=== PATIENT | male | born 1950 | race Caucasian/White ===

== ENCOUNTER 2020-02-29 13:53 | Emergency (ER) | payer MEDICARE, SELFPAY ==
--- NOTE | 2020-02-29 13:59 | XR_ITS ---
PROCEDURE: XR ANKLE RT MIN 3V CLINICAL INDICATION: fall from roof lateral pain COMPARISON: No exams were available for comparison FINDINGS: There is prominent soft tissue swelling at the lateral malleolar region. A faint curvilinear density is present lateral to the lateral malleolus and could be due to an avulsion injury. There is an old avulsion fracture at the tip of the medial malleolus. In the distal shaft of the tibia laterally there is a well-circumscribed sclerotic region measuring approximately 16 mm. Comminuted impacted calcaneal fracture is noted. Fracture line may extend into the subtalar region. IMPRESSION: 1. Comminuted impacted calcaneal fracture. 2. Possible avulsion fracture at the lateral malleolar region. Dictated by: Tunde Up MD 02/29/2020 15:09 Tunde Up MD in [facility] 02/29/2020 15:09
--- NOTE | 2020-02-29 13:59 | CT_ITS ---
PROCEDURE: CT CERVICAL SPINE WO CON CLINICAL INDICATION: fall from roof Neck injury with pain, contusion/abrasion or hematoma, cervical sprain/strain the COMPARISON: No exams were available for comparison TECHNIQUE: Axial images obtained with sagittal and coronal reformats. All CT scans at the facility use one or more dose reduction, viz: automated exposure control, ma/kV adjustment per patient size (including targeted exams where dose is matched to indication, i.e. head), or iterative reconstruction technique. Axial spiral CT scanning performed of the cervical spine beginning at the base of the skull and continuing to the upper T-spine. 3-D multiplanar reconstruction with 3-D manipulation of volumetric data set in image rendering was completed by the radiologist and/or technologist with the supervision of the radiologist on independent workstation. FINDINGS: Normal alignment. No acute fracture or dislocation. There is mild multilevel cervical spondylosis. C3-C4: Foraminal narrowing on the right from facet and uncovertebral hypertrophy. C4-C5: Right-sided foraminal narrowing from facet and uncovertebral hypertrophy. C5-C6: Mild degenerative disc disease. C6-C7: Unremarkable. Lung apices are clear. Scattered small nodes are present in the neck. IMPRESSION: Cervical spondylosis, no acute fracture Dictated by: Tunde Up MD 02/29/2020 14:51 Tunde Up MD in [facility] 02/29/2020 14:51
--- NOTE | 2020-02-29 13:59 | CT_ITS ---
PROCEDURE: CT HEAD/BRAIN WO CON CLINICAL INDICATION: fall from roof Head injury with headache/pain, contusion, abrasion or hematoma COMPARISON: No exams were available for comparison TECHNIQUE: Axial images obtained. All CT scans at the facility use one or more dose reduction, viz: automated exposure control, ma/kV adjustment per patient size (including targeted exams where dose is matched to indication, i.e. head), or iterative reconstruction technique. FINDINGS: No midline shift, mass effect, intracranial hemorrhage, hydrocephalus, or extra-axial fluid collection is evident. The calvarium has an unremarkable appearance. No mastoid effusion. No sinus air-fluid level. IMPRESSION: No acute intracranial finding Dictated by: Tunde Up MD 02/29/2020 14:46 Tunde Up MD in [facility] 02/29/2020 14:47
--- NOTE | 2020-02-29 13:59 | CT_ITS ---
PROCEDURE: CT LUMBAR SPINE WO CON CLINICAL HISTORY: fall from roof Posttraumatic pain COMPARISON: No exams were available for comparison TECHNIQUE: Axial images obtained with sagittal and coronal reformats. All CT scans at the facility use one or more dose reduction, viz: automated exposure control, ma/kV adjustment per patient size (including targeted exams where dose is matched to indication, i.e. head), or iterative reconstruction technique. FINDINGS: Normal alignment. There is degenerative disc disease at T11-T12 and T12-L1. There is minimal buckling of the anterior cortex at L1 with very slight loss of height anteriorly suggesting a minor acute wedge compression fracture. There is a small osteophyte at the T12-L1 level anteriorly as well. No retropulsion or posterior element involvement. The compression is slightly greater along the left aspect of the vertebral body anteriorly as seen on the coronal images. There is a sclerotic focus in the pedicle on the right at L1 and may be due to a bone island measuring approximately 10 mm. L1-L2: Unremarkable. L2-L3: Mild bulging disc. L3-L4: Mild bulging disc. L4-5: Mild bulging disc. L5-S1: Bulging disc. There is a sclerotic focus at 15 mm in the ilium on the right medially with an additional sclerotic focus of the ilium posteriorly at 7 mm. A sclerotic focus is present in the left aspect of the S1 at 10 mm. Incidental note is made nonobstructing bilateral renal calculi. There is a 13 mm hypodensity in the posterior aspect of the left kidney. There is a 7 mm stone in the mid polar region of the left kidney IMPRESSION: 1. Acute compression fracture of L1 with loss of height anteriorly of approximately 10 percent without obvious retropulsion. 2. Multilevel lumbar spondylosis as detailed above. 3. Multiple sclerotic foci. These could be due to bone islands or blastic metastasis. Dictated by: Tunde Up MD 02/29/2020 14:57 Tunde Up MD in [facility] 02/29/2020 14:57
--- NOTE | 2020-02-29 14:01 | HMH.EDFALL ---
ED Disposition Clinical Impression: Fall from roof Qualifiers: Encounter type: initial encounter Qualified Code(s): W13.2XXA - Fall from, out of or through roof, initial encounter Calcaneal fracture Qualifiers: Encounter type: initial encounter Calcaneus location: unspecified portion of calcaneus Fracture type: closed Fracture alignment: displaced Laterality: right Qualified Code(s): S92.001A - Unspecified fracture of right calcaneus, initial encounter for closed fracture Medial malleolar fracture Qualifiers: Encounter type: initial encounter Fracture type: closed Fracture alignment: displaced Laterality: right Qualified Code(s): S82.51XA - Displaced fracture of medial malleolus of right tibia, initial encounter for closed fracture Fracture of lumbar spine Qualifiers: Encounter type: initial encounter Lumbar vertebra fracture level: L1 Fracture type: closed Fracture morphology: wedge compression Qualified Code(s): S32.010A - Wedge compression fracture of first lumbar vertebra, initial encounter for closed fracture Disposition: Home, Self-Care Condition on Discharge: Good Instructions: DI for Calcaneus Fracture, DI for Vertebral Fracture Additional Instructions: Remain nonweightbearing on the right lower extremity. Follow-up with orthopedics as directed. You should receive a call from them later today or tomorrow. Return to the emergency department for any acute new sensory or motor changes to your extremities. Prescriptions: Hydrocodone/Acetaminophen [[place] 5-325 Tablet] 1 each PO Q4-6H PRN #9 tab PRN Reason: pain Prescription Printed Referrals: Jose Gaines MD [Primary Care Provider] - 3 days - Critical Care Critical Care Time: Yes Attestation: On , the high probability of a clinically significant, sudden or life threatening deterioration of the following system(s) required my full and direct attention, intervention and personal management. The time I documented below is in addition to time spent performing reported procedures but includes the following listed in this critical care notation. Total Critical Care Time: 45 Vital system(s) involved:: Circulatory Failure, Central Nervous System, Respiratory Failure, Shock (Hemorrhage) My critical care processes included: Assessment & monitoring of V/S, Initial and Re-exams, Data Review/Interpretation, Coordinating Care, Medication Orders and management, Documentation Medical Decision Making - Medical Records Medical records reviewed: Yes: I reviewed the patient's medical records. - Ezra Inquiry Pt receiving controlled substance: No Ezra was queried for this patient: No Vital Signs: 09/28/20 14:06 02/29/20 14:41 02/29/20 15:08 Temperature 97.7 F Temperature Source Oral Pulse Rate [Left Radial] 86 84 83 Respiratory Rate 18 Blood Pressure [Right Arm] 142/80 H 132/73 126/70 Blood Pressure Mean [Right Arm] 100 92 88 Blood Pressure Source [Right Arm] Automatic Cuff Automatic Cuff Automatic Cuff Blood Pressure Position [Right Arm] Sitting Sitting 02 Sat by Pulse Oximetry 98 93 L 90 L Oxygen Delivery Method Room Air Room Air Room Air 02/29/20 15:53 Temperature Temperature Source Pulse Rate [Left Radial] 82 Respiratory Rate Blood Pressure [Right Arm] 113/65 Blood Pressure Mean [Right Arm] 81 Blood Pressure Source [Right Arm] Automatic Cuff Blood Pressure Position [Right Arm] Sitting 02 Sat by Pulse Oximetry 93 L Oxygen Delivery Method Room Air - Lab Data Lab Results 02/29/20 13:10: Total Bilirubin 0.9, Direct Bilirubin 0.0, Conjugated Bilirubin 0.0, Indirect Bilirubin 0.9, Unconjugated Bilirubin 0.9, AST 45, ALT 30, Alkaline Phosphatase 81, Total Protein 7.7, Albumin 4.4 02/29/20 13:10: PT 10.8, INR 1.05, APTT 20.9 L 02/29/20 13:50: WBC 11.3 H, RBC 5.21, Hgb 15.6, Hct 46.2, MCV 88.7, MCH 30.0, MCHC 33.8, RDW 13.5, Plt Count 275, MPV 7.6, Neut % (Auto) 70.7, Lymph % (Auto) 23.0, [place] % (Auto) 5.2, Eos % (Auto) 0.8, Baso % (Auto) 0.3, [place]
[2020-02-29 14:06] VITALS: BP 142/80; PULSE 86; RESP 18; TEMP 36.5; O2SAT 98
--- NOTE | 2020-02-29 14:06 | XR_ITS ---
PROCEDURE: XR CHEST PORTABLE CLINICAL HISTORY: fall from roof Posttraumatic pain COMPARISON: No exams were available for comparison FINDINGS: There is in right atrial and 3 right ventricular pacemaker wires present from the left subclavian approach. Normal heart size. The lungs are clear without infiltrates, suspicious nodules, or pleural effusions. Sclerotic foci are present in the right humerus proximally IMPRESSION: No acute finding. Sclerotic foci of the proximal right humerus which could be due to bone islands or blastic metastasis Dictated by: Tunde Up MD 02/29/2020 15:05 Tunde Up MD in [facility] 02/29/2020 15:05
--- NOTE | 2020-02-29 14:06 | XR_ITS ---
PROCEDURE: XR CALCANEUS RT MIN 2V CLINICAL INDICATION: fall from roof Posttraumatic pain COMPARISON: No exams were available for comparison FINDINGS: There is a comminuted fracture involving the mid and anterior aspect of the calcaneus with flattening of Boehler's angle. No significant displacement. IMPRESSION: Comminuted calcaneal fracture with flattening of Boehler's angle Dictated by: Tunde Up MD 02/29/2020 15:07 Tunde Up MD in [facility] 02/29/2020 15:07
--- NOTE | 2020-02-29 14:06 | XR_ITS ---
PROCEDURE: XR PELVIS 1-2V CLINICAL INDICATION: fall from roof Posttraumatic pain COMPARISON: No exams were available for comparison TECHNIQUE: XR Pelvis AP View FINDINGS: No fracture or dislocation is evident. Mild osteoarthritic changes of the hips. There are multiple pelvic phleboliths. There is a sclerotic focus in the right ilium at 1.9 cm. Small sclerotic focus also involves the left sacrum medially at 9 mm. IMPRESSION: No acute fracture. There are sclerotic pelvic foci which could be due to bone islands or blastic metastasis Dictated by: Tunde Up MD 02/29/2020 15:04 Tunde Up MD in [facility] 02/29/2020 15:04
[2020-02-29 14:09] LABS: Basophils % 0.3 % (0.1-2.0); Eosinophils # 0.1 K/mm3 (0.0-0.4); Eosinophils % 0.8 % (0.1-12.0); Hematocrit 46.2 % (42.0-52.0); Hemoglobin 15.6 g/dL (14.1-18.0); Lymphocytes # 2.6 K/mm3 (0.7-4.5); Mean Corpuscular HGB Conc 33.8 g/dL (31.8-35.4); Mean Corpuscular Volume 88.7 fl (80-94); Mean Platelet Volume 7.6 fl (7.4-10.4); Monocytes # 0.6 K/mm3 (0.1-1.0); Monocytes % 5.2 % (1.7-9.3); Neutrophils % 70.7 % (37.0-80.0); Platelet Count 275 K/mm3 (142-424); Red Blood Count 5.21 M/mm3 (4.60-6.20); Red Cell Distribution Width 13.5 % (11.5-17.5); White Blood Count 11.3 K/mm3 (4.8-10.8)
[2020-02-29 14:16] LABS: Chloride 105 mmol/L (98-107); Sodium 139 mmol/L (136-145)
[2020-02-29 14:18] LABS: Alanine Aminotransferase 30 U/L (12-78); Aspartate Amino Transferase 45 U/L (17-59); Bilirubin,Indirect 0.9 mg/dL (0.0-0.9); Bilirubin,Total 0.9 mg/dl (0.2-1.3); Bilirubin,Unconjugated 0.9 mg/dL (0.0-1.1)
[2020-02-29 14:19] LABS: Albumin Level 4.4 g/dl (3.5-5.0); Alkaline Phosphatase 81 U/L (38-126); Total Protein,Serum 7.7 g/dl (6.3-8.2)
[2020-02-29 14:19] LABS: Blood Urea Nitrogen 14 mg/dl (9-20); Carbon Dioxide 24 mmol/L (22.0-30.0); Estimated Glomerular Filt Rate 67 ml/min (>60); GFR (African American) 81 ML/MIN (>60)
[2020-02-29 14:20] LABS: Calcium 9.2 mg/dl (8.4-10.2); Glucose 124 mg/dl (74-100)
--- NOTE | 2020-02-29 14:21 | PC.NURSE ---
[facility] were here at the time of trauma alert being paged. Standing by at this time.
--- NOTE | 2020-02-29 14:22 | PC.NURSE ---
pt returned from rad.
--- NOTE | 2020-02-29 14:24 | PC.NURSE ---
Portable chest xray and AP pelvis being done at this time
[2020-02-29 14:34] LABS: Activated Partial Thrombo Time 20.9 seconds (23.6-34.0); INR 1.05 (0.9-1.1); Prothrombin Time 10.8 seconds (9.4-11.8)
[2020-02-29 14:37] VITALS: BMI 24.4
[2020-02-29 14:41] VITALS: BP 132/73; PULSE 84; O2SAT 93
--- NOTE | 2020-02-29 15:02 | CT_ITS ---
PROCEDURE: CT CALCANEUS RT CLINICAL HISTORY: fracture Calcaneal fracture COMPARISON: No exams were available for comparison TECHNIQUE: Axial images obtained with sagittal and coronal reformats. All CT scans at the facility use one or more dose reduction, viz: automated exposure control, ma/kV adjustment per patient size (including targeted exams where dose is matched to indication, i.e. head), or iterative reconstruction technique. FINDINGS: There is a comminuted fracture involving the calcaneus with 3 major parts of the fracture. There is a fracture extending from the superior surface of the calcaneus to the plantar surface of the calcaneus beginning just posterior to the posterior subtalar joint. This fracture is not significantly displaced but is slightly impacted with comminution of fragments at the ages of the fracture. The 2nd major fracture fragment line extends from the mid and lateral aspect of the calcaneus from the region of the peroneal tubercle obliquely to the distal surface of the calcaneus exiting just medial to the calcaneocuboid junction. The distal fracture fragment is slightly impacted. There is a butterfly fragment at this area laterally which is displaced laterally by 5 mm. The lateral portion of this fracture extends into the sinus tarsi region. There old well-circumscribed fragments at the tip of the medial malleolus consistent with old avulsion fracture or degenerative ossification. Prominent soft tissue swelling is present medially and laterally at the calcaneal region. There is loss of Boehler's angle. IMPRESSION: Comminuted calcaneal fracture as detailed above. Dictated by: Tunde Up MD 02/29/2020 15:59 Tunde Up MD in [facility] 02/29/2020 15:59
--- NOTE | 2020-02-29 15:02 | PC.NURSE ---
Dr Briscoe speaking to Dr Chua at this time.
[2020-02-29 15:08] VITALS: BP 126/70; PULSE 83; O2SAT 90
--- NOTE | 2020-02-29 15:23 | PC.NURSE ---
Pt returned to rad.
[2020-02-29 15:53] VITALS: BP 113/65; PULSE 82; O2SAT 93
[2020-02-29 17:11] VITALS: BP 113/65; PULSE 82; RESP 18; TEMP 36.5; O2SAT 93
== END 2020-02-29 17:14 | disposition home or self-care (01) ==
PROVIDERS: Emergency Provider Emergency Medicine; PCP Family Medicine
DX: S92.001A Unspecified fracture of right calcaneus, initial encounter for closed fracture (principal); S32.010A Wedge compression fracture of first lumbar vertebra, initial encounter for closed fracture; W13.2XXA Fall from, out of or through roof, initial encounter; I10 Essential (primary) hypertension
CPT/HCPCS: 29515; 36415; 70450; 71045; 72125; 72131; 72170; 73610; 73650; 73700; 80048; 80076; 85025; 85610; 85730; 86850; 99283; J2405

== ENCOUNTER 2021-01-19 09:22 | Emergency (ER) | payer MEDICARE, SELFPAY ==
[2021-01-19 09:23] VITALS: BP 124/64; PULSE 77; RESP 16; TEMP 36.5; O2SAT 99; BMI 24.4
--- NOTE | 2021-01-19 10:26 | HMH.EDUTC ---
[facility] [place] Impression: Exposure to COVID-19 virus Disposition: Home, Self-Care Condition on Discharge: Good Instructions: Preventing the Spread of Coronavirus Discharge Instructions Additional Instructions: Drink plenty of fluids. Take tylenol for pain or fever. Return if you begin to have difficulty breathing. Follow up with your regular doctor. GO TO THE ER FOR ANY WORSENING SYMPTOMS Quarantine until you know the results of your covid-19 test. If it is positive, the health department should call you and give you further instructions about your length of Quarantine and other thing. Referrals: Jose Gaines MD [Primary Care Provider] - Time of Disposition: 10:27 Medical Decision Making - Medical Records Medical records reviewed: No: I reviewed the patient's medical records. - Ezra Inquiry Pt receiving controlled substance: No Vital Signs: 01/19/21 09:23 01/19/21 10:33 Temperature 97.7 F 97.7 F Temperature Source Oral Oral Pulse Rate 77 Pulse Rate [Right] 77 Respiratory Rate 16 16 Blood Pressure 124/64 Blood Pressure [Right Arm] 124/64 Blood Pressure Mean [Right Arm] 84 02 Sat by Pulse Oximetry [address] [facility] [place] - General Stated complaint: covid test Time Seen by Provider: 01/19/21 10:27 - History of Present Illness Provider Complaint: He was exposed to covid around 3 to 4 days ago. He denies any symptoms so far. He has been vaccinated. - Related Data Previous Rx's Medication Instructions Recorded Hydrocodone/Acetaminophen [[place] 1 each PO Q4-6H PRN #9 tab 02/29/20 5-325 Tablet] Allergies Allergy/AdvReac Type Severity Reaction Status Date / Time No Known Allergies Allergy Verified 02/29/20 14:35 [facility] History - Hepatitis A Screen Attestation statement:: This patient has been screened for Hepatitis A risk factors. I have reviewed the patient's past medical history: Yes Medical History: Reports:: Hypertension ROS Obtained: Yes All systems reviewed & no additional complaints - Constitutional Constitutional: Reports system reviewed and no additional complaints, except as docu - Eyes Eyes: Reports system reviewed and no additional complaints, except as docu - ENT Ears, Nose, Mouth, and Throat: Reports system reviewed and no additional complaints, except as docu - Cardiovascular Cardiovascular: Reports system reviewed and no additional complaints, except as docu - Respiratory Respiratory: Reports system reviewed and no additional complaints, except as docu - Gastrointestinal Gastrointestingal: Reports: system reviewed and no additional complaints, except as docu Physical Exam - General General appearance: alert, in no apparent distress - Head Head exam: atraumatic, normocephalic, normal inspection - Eye Eye exam: Present: normal appearance, PERRL, EOMI - ENT ENT exam: Present: normal exam, normal oropharynx, mucous membranes moist, TM's normal bilaterally, normal external ear exam - Neck Neck exam: Present: normal inspection, full ROM, trachea midline. Absent: meningismus, lymphadenopathy - Chest Chest inspection: Present: normal inspection, symmetric chest wall rise. Absent: tenderness - Respiratory Respiratory exam: Present: normal lung sounds bilaterally. Absent: respiratory distress - Cardiovascular Cardiovascular exam: Present: regular rate, normal rhythm. Absent: JVD - Abdominal Exam Abdominal exam: Present: soft, normal bowel sounds. Absent: distention, tenderness, guarding - Extremities Exam Extremities exam: Present: normal inspection, full ROM, normal capillary refill. Absent: calf tenderness - Back Exam Back exam: Present: normal inspection. Absent: tenderness - Neurological Exam Neurological exam: Present: alert, oriented X3 - Psychiatric Psychiatric exam: Present: normal affect, normal mood - Skin Skin exam: Present: warm, dry, intact, normal color - Lymphatic Lymphatic
[2021-01-19 10:33] VITALS: BP 124/64; PULSE 77; RESP 16; TEMP 36.5; O2SAT 99
== END 2021-01-19 10:34 | disposition home or self-care (01) ==
PROVIDERS: Emergency Provider Nurse Practitioner Family; PCP Family Medicine
DX: Z20.822 Contact with and (suspected) exposure to COVID-19 (principal)
CPT/HCPCS: G0463; 99202; U0003

== ENCOUNTER → 2022-01-22 11:40 | Outpatient (CLI) | payer MEDICARE, SELFPAY | PROVIDERS: PCP Nurse Practitioner Family; Visit Provider Nurse Practitioner Family | DX: U07.1 COVID-19 (principal); R05.1 Acute cough | CPT/HCPCS: C9803; U0003; U0005 ==

== ENCOUNTER → 2022-11-14 08:54 | Outpatient (POV) | payer MEDICARE, SELFPAY | PROVIDERS: Visit Provider Specialist/Technologist | DX: Z00.00 Encounter for general adult medical examination without abnormal findings (principal) ==

== ENCOUNTER 2023-04-12 04:23 | Emergency (ER) | payer MEDICARE, SELFPAY ==
[2023-04-12 04:32] VITALS: RESP 18; TEMP 36.7; O2SAT 97; BMI 22.4
--- NOTE | 2023-04-12 04:34 | PC.NURSE ---
Dr. Allen at bedside performing ultrasound
[2023-04-12 04:38] VITALS: BP 142/79; PULSE 83
--- NOTE | 2023-04-12 04:56 | HMH.EDGENADL ---
Discharge Plan Disposition Patient Disposition: Home, Self-Care Prescriptions Prescriptions: No Action omeprazole 40 mg capsule,delayed release(DR/EC) 40 mg PO DAILY ramipril 5 mg capsule 5 mg PO BID metoprolol succinate 50 mg tablet extended release 24 hr 50 mg PO DAILY aspirin [Adult Low Dose Aspirin] 81 mg tablet,delayed release (DR/EC) 81 mg PO DAILY Referrals Follow up/Referrals: Jose Gaines MD [Primary Care Provider] - See instructions Activity Restrictions/Add. Instructions Additional Instructions/Restrictions: Please keep Batista in place until you can follow-up with your urologist. Clinical Impressions Clinical Impression: Acute urinary retention Instructions Patient Instructions: DI for Urinary Tract Infection (UTI), DI for Urinary Tract Infection in Children Discharge ED Provider: Darrick Allen Adult HPI General Chief complaint: Urogenital-Male Stated complaint: trouble urinating Time Seen by Provider: 04/12/23 04:31 Mode of Arrival: Ambulatory Limitations: No Limitations Description of Symptoms (Recalled from ER Triage Doc. by RN): Patient states for the last two- three hours he has had the urge to urinate, but has been able to has a bowel movement instead, C/O suprapubic pressure pain. States he has a history of bladder cancer three times and does follow up with urology at [facility]. States he had a prostate biopsy a little while ago , but it was negative. History of Present Illness HPI narrative: 72-year-old male, reported history of bladder cancer x3 with prior operative intervention presents with acute onset urinary retention. He reports that he has had no symptoms recently, specifically no fever chills urinary urgency, urinary frequency, hematuria. He follows with urology at [facility]. He reports no history of urinary retention in the past. He reports that he last urinated yesterday afternoon, reports that he has been trying to pee tonight but is unable to. Reports severe pain and pressure sensation. Related Data Home Medications Medication Instructions Recorded Confirmed aspirin 81 mg tablet,delayed 81 mg PO DAILY 10/10/22 04/12/23 release (Adult Low Dose Aspirin) metoprolol succinate 50 mg 50 mg PO DAILY 10/10/22 04/12/23 tablet,extended release 24 hr omeprazole 40 mg capsule,delayed 40 mg PO DAILY 05/10/23 11/10/23 release ramipril 5 mg capsule 5 mg PO BID 10/10/22 04/12/23 Allergies Allergy/AdvReac Type Severity Reaction Status Date / Time No Known Allergies Allergy Verified 11/14/22 09:28 [facility] Disclaimer: The information contained in this section may have been updated after the patient was seen, as this information can be updated by other users. Medical History Cataract Hearing loss History of bladder cancer HTN (hypertension), benign Surgical History History of appendectomy History of cardiac defibrillator placement History of foot surgery Family History Other Cancer Social History Smoking Status: Never smoker alcohol intake: never current occupational status: retired Travel in the last 8 weeks: Inside the [place] ROS Obtained: Yes All systems reviewed & no additional complaints except as documented Physical Exam General General appearance: alert and in no apparent distress Head Head exam: atraumatic and normocephalic Eye Eye exam: Present normal appearance, PERRL and EOMI ENT ENT exam: Present normal oropharynx and normal external ear exam Neck Neck exam: Present normal inspection and full ROM Chest Chest inspection: Present normal inspection and symmetric chest wall rise; Absent tenderness Respiratory Respiratory exam: Present normal brennen
--- NOTE | 2023-04-12 04:58 | PC.NURSE ---
16 FR Coude davila placed per order, patient tolerated well. 1400 ML urinary output at insertion
[2023-04-12 05:04] LABS: Microscopic, Urine URINE MICROSCOPIC (MICROSCOPIC)
[2023-04-12 05:27] LABS: Appearance,Urine CLEAR (Clear); Bilirubin,Urine Negative (Negative); Blood, Urine 2+ (Negative); Color,Urine YELLOW (Yellow); Glucose,Urine (UA) Negative (Negative); Ketones,Urine Negative (Negative); Leukocyte Esterase,Urine Negative (Negative); Nitrate,Urine Negative (Negative); PH,Urine 6.5 (5.0-8.5); Protein,Urine Negative (Negative); Urobilinogen,Urine 0.2 EU/dl (0.2)
--- NOTE | 2023-04-12 05:35 | PC.NURSE ---
emptied cath: 300ml output
[2023-04-12 05:37] VITALS: BP 114/66; PULSE 78; RESP 18; TEMP 36.8
[2023-04-12 05:44] LABS: Bacteria,Urine Trace /lpf
== END 2023-04-12 05:44 | disposition home or self-care (01) ==
PROVIDERS: Emergency Provider Emergency Medicine; PCP Family Medicine
DX: R10.0 Acute abdomen (principal); R33.9 Retention of urine, unspecified; Z85.51 Personal history of malignant neoplasm of bladder; I10 Essential (primary) hypertension
CPT/HCPCS: 51702; 81001; 99284

== ENCOUNTER 2023-04-26 02:09 | Emergency (ER) | payer MEDICARE, SELFPAY ==
[2023-04-26] VITALS (8 sets, daily range): BP systolic 106–136; BP diastolic 57–77; PULSE 60–87; RESP 16–17; TEMP 36.6–36.8; O2SAT 86–97; BMI 22.2
[2023-04-26 02:39] LABS: Microscopic, Urine URINE MICROSCOPIC (MICROSCOPIC)
[2023-04-26 02:41] LABS: Appearance,Urine CLEAR (Clear); Bilirubin,Urine Negative (Negative); Blood, Urine TRACE-I (Negative); Color,Urine YELLOW (Yellow); Glucose,Urine (UA) Negative (Negative); Ketones,Urine Negative (Negative); Leukocyte Esterase,Urine 1+ (Negative); Nitrate,Urine Negative (Negative); PH,Urine 6.5 (5.0-8.5); Protein,Urine Negative (Negative); Urobilinogen,Urine 0.2 EU/dl (0.2)
--- NOTE | 2023-04-26 02:42 | HMH.EDGENADL ---
Discharge Plan Disposition Patient Disposition: Home, Self-Care Condition: Good Prescriptions Prescriptions: No Action omeprazole 40 mg capsule,delayed release(DR/EC) 40 mg PO DAILY ramipril 5 mg capsule 5 mg PO BID metoprolol succinate 50 mg tablet extended release 24 hr 50 mg PO DAILY aspirin [Adult Low Dose Aspirin] 81 mg tablet,delayed release (DR/EC) 81 mg PO DAILY Referrals Follow up/Referrals: Jose Espana MD [Primary Care Provider] - See instructions Activity Restrictions/Add. Instructions Additional Instructions/Restrictions: You were evaluated in the emergency department today for concerns of urinary retention. Your labs and imaging are reassuring. Call your urologist and make an appointment immediately for reevaluation and to continue discussing your recurrent urinary retention. Maintain the Batista catheter as you have previously. Make an appointment with your primary care physician for reevaluation as soon as possible. Return to the emergency department with any new, worsening, or otherwise concerning symptoms. Clinical Impressions Clinical Impression: Acute urinary retention Instructions Patient Instructions: DI for Urinary Tract Infection (UTI), DI for Urinary Tract Infection in Children Discharge ED Provider: Roxi Purvis Adult HPI General Chief complaint: Urogenital-Male Stated complaint: trouble urinating Time Seen by Provider: 04/26/23 02:41 Mode of Arrival: Ambulatory Source of Information: Patient Limitations: No Limitations Description of Symptoms (Recalled from ER Triage Doc. by RN): 72 M presents from home c/o continued urinary retention and lower abdominal pressure. Patient reports having a catheter 2 weeks ago, followed up with his urologist at to remove it. He went back last week, but they placed another and followed up again this week for the removal. Patient states he felt that he was voiding fine, but tonight it began to build up pressure like he needed to move his bowels. History of Present Illness HPI narrative: This 72-year-old male presents to the emergency department for concerns of urinary retention. Patient is complaining of lower abdominal pain. Patient states 2 to 3 weeks ago he presented to the ER here at [facility] for urinary retention and had a catheter placed. He was referred for urology follow-up and the catheter had to be maintained until 3 days ago when it was removed by his urologist and he had successful voiding trial. Patient was able to void successfully for nearly 48 hours but yesterday evening started having difficulty urinating again despite taking all of his home medications including his tamsulosin as recommended. Patient states he has been unable to urinate since yesterday evening and presented early this morning due to lower abdominal discomfort and retention. Patient states he does have a history of bladder cancer and has not had any imaging recently. He states he has not had a cystoscopy recently either. He is not complaining of any nausea or vomiting, no fevers or back pain, no other associated symptoms Related Data Home Medications Medication Instructions Recorded Confirmed aspirin 81 mg tablet,delayed 81 mg PO DAILY 10/10/22 04/12/23 release (Adult Low Dose Aspirin) metoprolol succinate 50 mg 50 mg PO DAILY 10/10/22 04/12/23 tablet,extended release 24 hr omeprazole 40 mg capsule,delayed 40 mg PO DAILY 10/10/22 04/12/23 release ramipril 5 mg capsule 5 mg PO BID 10/10/22 04/12/23 Allergies Allergy/AdvReac Type Severity Reaction Status Date / Time No Known Allergies Allergy Verified 11/14/22 09:28 [facility] Disclaimer: The information contained in this section may have been updated after the patient was seen, as this information can be updated by other users. Medical History Cataract Hearing loss History of bladder cancer HTN (hyperten
--- NOTE | 2023-04-26 02:52 | PC.NURSE ---
Bladder scan showed >650
[2023-04-26 03:07] LABS: Chloride 105 mmol/L (98-107); Potassium 3.9 mmoL/L (3.5-5.1); Sodium 137 mmol/L (136-145)
[2023-04-26 03:10] LABS: Anion Gap 8.9 mEq/L (5-15); Blood Urea Nitrogen 19 mg/dl (9-20); Carbon Dioxide 27 mmol/L (22.0-30.0); Creatinine Clearance Estimated 65 mL/min (50-200); Estimated Glomerular Filt Rate 66 ml/min (>60); GFR (African American) 80 ML/MIN (>60)
[2023-04-26 03:11] LABS: Basophils % 0.4 % (0.1-2.0); Calcium 8.8 mg/dl (8.4-10.2); Eosinophils # 0.2 K/mm3 (0.0-0.4); Eosinophils % 2.4 % (0.1-12.0); Glucose 110 mg/dl (74-100); Hematocrit 42.5 % (42.0-52.0); Hemoglobin 14.3 g/dL (14.1-18.0); Lymphocytes # 1.8 K/mm3 (0.7-4.5); Lymphocytes % 22.3 % (10-50); Mean Corpuscular HGB Conc 33.5 g/dL (31.8-35.4); Mean Corpuscular Hemoglobin 29.9 pg (27.0-31.2); Mean Corpuscular Volume 89.2 fl (80-94); Mean Platelet Volume 7.7 fl (7.4-10.4); Monocytes # 0.6 K/mm3 (0.1-1.0); Neutrophils # 5.4 K/mm3 (1.8-7.8); Platelet Count 222 K/mm3 (142-424); Red Blood Count 4.77 M/mm3 (4.60-6.20); Red Cell Distribution Width 13.5 % (11.5-17.5); White Blood Count 7.9 K/mm3 (4.8-10.8)
--- NOTE | 2023-04-26 03:28 | CT_ITS ---
PROCEDURE INFORMATION: Exam: CT Abdomen And Pelvis With Contrast Exam date and time: 04/26/2023 3:57 AM Age: 72 years old Clinical indication: Other: Urinary retention; Additional info: Recurrent urinary retentioin; HX bladder cancer TECHNIQUE: Imaging protocol: Computed tomography of the abdomen and pelvis with contrast. Radiation optimization: All CT scans at this facility use at least one of these dose optimization techniques: automated exposure control; mA and/or kV adjustment per patient size (includes targeted exams where dose is matched to clinical indication); or iterative reconstruction. Contrast material: ISOVUE; Contrast volume: 75 ml; Contrast route: IV; REPORTING DATA: Count of CT and Cardiac NM exams in prior 12 months: This patient has received 0 known CTs and 0 known cardiac nuclear medicine studies in the 12 months prior to the current study. COMPARISON: CR XR PELVIS 1-2V 02/29/2020 2:33 PM FINDINGS: Tubes, catheters and devices: There is a Batista catheter with the balloon inflated in the bladder. There is partial visualization of pacemaker wires. Lungs: There is basilar atelectasis. Liver: There are a few small hepatic cysts. Gallbladder and bile ducts: No calcified stones. No ductal dilation. Pancreas: Normal. No ductal dilation. Spleen: Normal. No splenomegaly. Adrenal glands: Normal. No mass. Kidneys and ureters: There are nonobstructing left renal calculi with the largest in the mid zone measuring up to 8 mm. There is a 4 mm nonobstructing calculus in the lower zone of the right kidney. There are small renal cysts incidentally noted. Stomach and bowel: No obstruction. Appendix: No evidence of appendicitis. Intraperitoneal space: No free air. No significant fluid collection. Vasculature: No abdominal aortic aneurysm. Lymph nodes: No enlarged lymph nodes. Urinary bladder: The bladder is decompressed. There is bladder wall thickening. Reproductive: The prostate is markedly enlarged. Bones/joints: There are degenerative changes throughout the spine. There is a mild compression deformity of the L1 vertebral body with 2 mm of retropulsion of the posterior endplate. This is of undetermined age. Soft tissues: Unremarkable. IMPRESSION: 1. Status post placement of Batista catheter with the bladder decompressed. 2. Bladder wall thickening not fully assessed. 3. Nonobstructing renal calculi. 4. Mild compression fracture L1 of undetermined age. If acute low back pain is present, further imaging may be indicated. COMMENTS: Consistent with the [employer]'s Incidental Findings Committee white paper (J Am Noreen Radiol 2018): Any incidental renal lesion less than 1 cm or classified as too small to characterize, or any incidental cystic renal lesion characterized as simple-appearing, is likely benign. No follow-up imaging is recommended for these lesions per consensus recommendations based on imaging criteria.
[2023-04-26 03:41] LABS: Bacteria,Urine 2+ /lpf
--- NOTE | 2023-04-26 04:00 | PC.NURSE ---
iv initiated for ct while on ct table.
--- NOTE | 2023-04-26 05:15 | PC.NURSE ---
contacted rad for update.
== END 2023-04-26 06:51 | disposition home or self-care (01) ==
PROVIDERS: Emergency Provider Emergency Medicine; PCP Internal Medicine Adolescent Medicine
DX: R10.30 Lower abdominal pain, unspecified (principal); R33.9 Retention of urine, unspecified; B95.7 Other staphylococcus as the cause of diseases classified elsewhere; I10 Essential (primary) hypertension; Z85.51 Personal history of malignant neoplasm of bladder
CPT/HCPCS: 51702; 74177; 80048; 81001; 85025; 87086; 99284; Q9967

== ENCOUNTER 2023-07-23 21:13 | Emergency (ER) | payer MEDICARE, SELFPAY ==
[2023-07-23 21:14] VITALS: BP 108/61; PULSE 88; RESP 16; TEMP 36.6; O2SAT 99; BMI 21.4
--- NOTE | 2023-07-23 21:28 | ED_ITS ---
I was consulted by the FRANCINE, and we discussed the complexity of the problems being addressed. I approved the treatment and management plan for this patient's care in the emergency department, thus performing a substantive portion of the medical decision making. Davian Jenkins MD, ABBY, FACE Discharge Plan Disposition Patient Disposition: Home, Self-Care Condition: Good Chief Complaint: Urogenital-Male Prescriptions Prescriptions: No Action omeprazole 40 mg capsule,delayed release(DR/EC) 40 mg PO DAILY ramipril 5 mg capsule 5 mg PO BID metoprolol succinate 50 mg tablet extended release 24 hr 50 mg PO DAILY aspirin [Adult Low Dose Aspirin] 81 mg tablet,delayed release (DR/EC) 81 mg PO DAILY Referrals Follow up/Referrals: Jose Gaines MD [Primary Care Provider] - See instructions Activity Restrictions/Add. Instructions Additional Instructions/Restrictions: Please follow-up with urology first thing in the morning by calling urology clinic. You may return at any time as needed for worsening symptoms or complications. Clinical Impressions Clinical Impression: Acute urinary retention Post-operative complication Qualifiers: Surgical complication system/body Area: genitourinary Surgical complication type: other Qualified Code(s): N99.89 - Other postprocedural complications and disorders of genitourinary system Discharge ED Provider: Davian Jenkins General Adult HPI General Chief complaint: Urogenital-Male Stated complaint: post op x1 wk, cannot urinate Time Seen by Provider: 07/23/23 21:27 History of Present Illness HPI narrative: Patient is a 72-year-old male who presents with lower abdominal pain. Patient has a past medical history of bladder cancer status post resection many years ago and most recently has had BPH with bladder dependent outlet obstruction. He recently underwent a simple prostatectomy at the [facility] on Saturday. He returned to clinic today and and they felt he met criteria to discontinue the Batista. Patient states that he actually voided once since the Batista was removed however he began having significant discomfort in his lower abdomen to the point where it reached a pain and 10 out of 10. Hence he presented to the emergency department for evaluatio Related Data Home Medications Medication Instructions Recorded Confirmed aspirin 81 mg tablet,delayed 81 mg PO DAILY 10/10/22 04/12/23 release (Adult Low Dose Aspirin) metoprolol succinate 50 mg 50 mg PO DAILY 10/10/22 04/12/23 tablet,extended release 24 hr omeprazole 40 mg capsule,delayed 40 mg PO DAILY 10/10/22 04/12/23 release ramipril 5 mg capsule 5 mg PO BID 10/10/22 04/12/23 Allergies Allergy/AdvReac Type Severity Reaction Status Date / Time No Known Allergies Allergy Verified 11/14/22 09:28 [facility] Disclaimer: The information contained in this section may have been updated after the patient was seen, as this information can be updated by other users. Medical History Cataract Hearing loss History of bladder cancer HTN (hypertension), benign Surgical History History of appendectomy History of cardiac defibrillator placement History of foot surgery Family History Other Cancer Social History Smoking Status: Never smoker alcohol intake: never current occupational status: retired Travel in the last 8 weeks: Inside the [place] ROS Obtained: Yes Systems reviewed as appropriate & no additional complaints except as documented Physical Exam General General appearance: alert and in no apparent distress Respiratory Respiratory exam: Present normal lung sounds bilaterally Cardiovascular Cardiovascular exam: Present regular rate and normal rhythm Neurological Exam Neurological exam: Present alert and oriented X3 Medical Decision Making Medical Records Medical records reviewed: Yes I reviewed the patient's medical records. Ezra Inquiry Pt receiving controlled substance: No Vital Signs: 07/23/23 21:14 Temperature 97.8 F Temperature Source Oral Pulse Rate [Right] 88 Respiratory Rate 16 Blood Pressure [Right Arm] 108/61 L Blood Pressure Mean [Right Arm] 76 02 Sat by Pulse Oximetry 99 Lab Data Lab results reviewed: Yes I reviewed the patient's lab results. Medical Decision Narrative: In summary patient is a 72-year-old male who presents to the emergency department for evaluation of lower abdominal pain and inability to void urine. Patient is hemodynamically stable upon arrival, and afebrile. Physical exam remarkable for suprapubic tenderness with a palpable bladder above the pubic bones. Differential diagnosis includes urinary retention via her obstruction or edema versus neurogenic cause versus hematoma [employer]. Initial workup will be conducted with bedside bladder scan and UA although it is unlikely to be of significant benefit given patient just Batista taken out today. Initial interventions include insertion of a coud? anchored Batista. Patient had 750 cc o n bladder scan. We were able to pass a coud? catheter into the bladder on the first attempt and initial decompression we got 700 cc return in Batista bag and bladder scan repeat showed 250 cc postvoid residual. Patient had immediate relief of his symptoms. Patient has a follow-up with urology at tomorrow. Patient is comfortable going home and contacting urology in the a.m. He has been told that he can return anytime should he have any further symptoms or concerns. Critical Care Critical Care Time Critical Care Time: No
--- NOTE | 2023-07-23 21:59 | PC.NURSE ---
pt was bladder scan with 750ml prior to cath
[2023-07-23] MEDS: LIDOCAINE 2% UROJET 10ML TP (22:02)
[2023-07-23 22:09] LABS: Microscopic, Urine URINE MICROSCOPIC (MICROSCOPIC)
[2023-07-23 22:24] VITALS: BP 113/75; PULSE 80; RESP 16; TEMP 36.6; O2SAT 99
[2023-07-23 22:26] LABS: Appearance,Urine CLOUDY (Clear); Blood, Urine 3+ (Negative); Color,Urine RED (Yellow); Glucose,Urine (UA) Negative (Negative); Ketones,Urine TRACE (Negative); Leukocyte Esterase,Urine 2+ (Negative); Nitrate,Urine POSITIVE (Negative); PH,Urine 6.5 (5.0-8.5); Protein,Urine 3+ (Negative)
[2023-07-23 22:55] LABS: Bilirubin,Urine 2+ (Negative)
[2023-07-23 22:56] LABS: Bacteria,Urine 1+ /lpf; RBC,Urine TNTC #/hpf (0-3); Squamous Epithelial Cell,Urine Occasional #/hpf (0-5); WBC,Urine Occasional #/hpf (0-3)
== END 2023-07-23 22:25 | disposition home or self-care (01) ==
PROVIDERS: Physician Assistant; Emergency Provider Student in an Organized Health Care Education/Training Program; PCP Family Medicine
DX: N99.89 Other postprocedural complications and disorders of genitourinary system (principal); R33.9 Retention of urine, unspecified; R10.30 Lower abdominal pain, unspecified; I10 Essential (primary) hypertension
CPT/HCPCS: 51702; 81001; 87086; 99283

== ENCOUNTER 2023-08-08 02:01 | Emergency (ER) | payer MEDICARE, SELFPAY ==
[2023-08-08 02:03] VITALS: BP 148/81; PULSE 77; RESP 16; TEMP 36.4; O2SAT 100; BMI 21.7
--- NOTE | 2023-08-08 02:05 | ED_ITS ---
Discharge Plan Disposition Patient Disposition: Home, Self-Care Prescriptions Prescriptions: No Action omeprazole 40 mg capsule,delayed release(DR/EC) 40 mg PO DAILY ramipril 5 mg capsule 5 mg PO BID metoprolol succinate 50 mg tablet extended release 24 hr 50 mg PO DAILY aspirin [Adult Low Dose Aspirin] 81 mg tablet,delayed release (DR/EC) 81 mg PO DAILY Referrals Follow up/Referrals: Jose Gaines MD [Primary Care Provider] - See instructions Activity Restrictions/Add. Instructions Additional Instructions/Restrictions: Please keep Batista in place until follow-up with urology. Clinical Impressions Clinical Impression: Acute on chronic urinary retention Instructions Patient Instructions: DI for Urinary Tract Infection (UTI), DI for Urinary Tract Infection in Children Discharge ED Provider: Darrick Allen Adult HPI General Chief complaint: Urogenital-Male Stated complaint: unable to urinate, abd pain Time Seen by Provider: 08/08/23 02:05 History of Present Illness HPI narrative: 72-year-old male with history of prostatic hypertrophy status post prostate procedure, presents with recurrent urinary retention. He has had an indwelling Batista that has been removed several times by urology. He is Batista was most recently removed yesterday, he was able to pee multiple times in the evening but later became unable to pee. He reports marked pelvic/lower abdominal pain and no urine output. Denies any bloody urine prior. Related Data Home Medications Medication Instructions Recorded Confirmed aspirin 81 mg tablet,delayed 81 mg PO DAILY 10/10/22 04/12/23 release (Adult Low Dose Aspirin) metoprolol succinate 50 mg 50 mg PO DAILY 10/10/22 04/12/23 tablet,extended release 24 hr omeprazole 40 mg capsule,delayed 40 mg PO DAILY 10/10/22 04/12/23 release ramipril 5 mg capsule 5 mg PO BID 10/10/22 04/12/23 Allergies Allergy/AdvReac Type Severity Reaction Status Date / Time No Known Allergies Allergy Verified 11/14/22 09:28 [facility] Disclaimer: The information contained in this section may have been updated after the patient was seen, as this information can be updated by other users. Medical History Cataract Hearing loss History of bladder cancer HTN (hypertension), benign Surgical History History of appendectomy History of cardiac defibrillator placement History of foot surgery Family History Other Cancer Social History Smoking Status: Never smoker alcohol intake: never current occupational status: retired Travel in the last 8 weeks: Inside the [place] ROS Obtained: Yes All systems reviewed & no additional complaints except as documented Physical Exam General General appearance: alert and in no apparent distress Head Head exam: atraumatic and normocephalic Eye Eye exam: Present normal appearance, PERRL and EOMI ENT ENT exam: Present normal oropharynx and normal external ear exam Neck Neck exam: Present normal inspection and full ROM Chest Chest inspection: Present normal inspection and symmetric chest wall rise; Absent tenderness Respiratory Respiratory exam: Present normal lung sounds bilaterally; Absent respiratory di stress Cardiovascular Cardiovascular exam: Present regular rate and normal rhythm Abdominal Exam Abdominal exam: Present soft and tenderness (Suprapubic); Absent distention or guarding Extremities Exam Extremities exam: Present normal inspection; Absent edema or joint swelling Back Exam Back exam: Present normal inspection; Absent tenderness Neurological Exam Neurological exam: Present alert and oriented X3; Absent motor sensory deficit Psychiatric Psychiatric exam: Present normal affect and normal mood Skin Skin exam: Present warm, dry and normal color Lymphatic Lymphatic Findings: no adenopathy Medical Decision Making Medical Records Medical records reviewed: Yes I reviewed the patient's medical records. Ezra Inquiry Pt receiving controlled substance: No Ezra was queried for this patient: No Vital Signs: 08/08/23 02:03 08/08/23 02:51 Temperature 97.5 F L 97.6 F Temperature Source Oral Oral Pulse Rate 77 Pulse Rate [Left] 77 Respiratory Rate 16 16 Blood Pressure 148/81 H Blood Pressure [Right Arm] 148/81 H Blood Pressure Mean [Right Arm] 103 Blood Pressure Source Automatic Cuff Blood Pressure Source [Right Arm] Automatic Cuff Blood Pressure Position Sitting Blood Pressure Position [Right Arm] Supine 02 Sat by Pulse Oximetry 100 Oxygen Delivery Method Room Air Room Air Lab Data Lab results reviewed: Yes I reviewed the patient's lab results. Lab Results 08/08/23 02:20: Urine Color Yellow, Urine Appearance Clear, Urine pH 6.5, Ur Specific [place] 1.015, Urine Protein 2+, Urine Glucose (UA) Negative, Urine Ketones Negative, Urine Blood 3+, Urine Nitrate Negative, Urine Bilirubin Negative, Urine Urobilinogen 0.2, Ur Leukocyte Esterase 2+ A, Urine RBC 5-10, Urine WBC 3-5 Orders (Tests/Meds): ED MEDICATIONS Discontinued Medications Generic Name Dose Route Start Last Admin Trade Name Kapil PRN Reason Stop Dose Admin Lidocaine HCl 1 ml 08/08/23 02:23 08/08/23 02:25 Lidocaine 2% Urojet 10ml TP 08/08/23 02:24 1 ml ONCE ONE Administration ORDERS Category Date Time Status Urinalysis and Microscopic Stat Lab 08/08/23 02:20 Completed Urine Culture Stat Micro 08/08/23 02:20 Received Medical Decision Narrative: 72-year-old male with history of acute on chronic urinary retention presents with urine retention after having his Batista taken out by urology yesterday.. History was obtained interactive discussion with patient, chart review. Differential diagnosis includes but limited to urinary retention, gross sneha turia, MEE, prostatic hypertrophy. On arrival, patient is [afebrile, hemodynamically stable, satting appropriately, alert, oriented x4, GCS 15], moving all extremities spontaneously. Full physical exam performed and significant for suprapubic fullness and tenderness. Bladder scan was performed with large volume urine noted in bladder. Batista was placed with output of large volume clear yellow urine. Urinalysis was performed, on my interpretation it is unremarkable and not consistent with acute infection. No concern for hematuria/clots as etiology of urinary retention patient was discharged in stable condition with plan to follow-up with urology. Procedures Risk/Benefits of Procedure(s) Were Explained: Yes Critical Care Critical Care Time Critical Care Time: No
[2023-08-08] MEDS: LIDOCAINE 2% UROJET 10ML TP (02:25)
[2023-08-08 02:28] LABS: Microscopic, Urine URINE MICROSCOPIC (MICROSCOPIC)
[2023-08-08 02:32] LABS: Appearance,Urine CLEAR (Clear); Bilirubin,Urine Negative (Negative); Blood, Urine 3+ (Negative); Color,Urine YELLOW (Yellow); Glucose,Urine (UA) Negative (Negative); Ketones,Urine Negative (Negative); Leukocyte Esterase,Urine 2+ (Negative); Nitrate,Urine Negative (Negative); PH,Urine 6.5 (5.0-8.5); Protein,Urine 2+ (Negative); Specific Gravity, Urine 1.015 (1.005-1.030); Urobilinogen,Urine 0.2 EU/dl (0.2)
--- NOTE | 2023-08-08 02:46 | PC.NURSE ---
in room talking with patient at this time.
[2023-08-08 02:51] VITALS: BP 148/81; PULSE 77; RESP 16; TEMP 36.4; O2SAT 100
== END 2023-08-08 03:01 | disposition home or self-care (01) ==
PROVIDERS: Emergency Provider Emergency Medicine; PCP Family Medicine
DX: R33.8 Other retention of urine (principal); R10.30 Lower abdominal pain, unspecified; I10 Essential (primary) hypertension
CPT/HCPCS: 51702; 81001; 87086; 99283

== ENCOUNTER 2023-08-16 07:43 | Emergency (ER) | payer MEDICARE, SELFPAY ==
[2023-08-16] VITALS (7 sets, daily range): BP systolic 109–144; BP diastolic 61–80; PULSE 61–90; RESP 16–17; TEMP 36.4–36.7; O2SAT 96–97; BMI 21.1
--- NOTE | 2023-08-16 08:30 | PC.NURSE ---
bladder scanned pt with 638 ml urine noted
--- NOTE | 2023-08-16 08:35 | PC.NURSE ---
Rounded on patient, family member at bedside. no needs voiced at this time.
--- NOTE | 2023-08-16 08:46 | PC.NURSE ---
PT FAMILY CAME OUT STATING IN ORDER FOR PT TO SEE OFFICE TODAY WE WOULD HAVE TO CALL , [facility]. [facility] WILL CALL BACK [facility] OUT FOR UROLOGIST
--- NOTE | 2023-08-16 09:06 | HMH.EDGENADL ---
Discharge Plan Disposition Patient Disposition: Xfer Short-Term Hosp Condition: Fair Prescriptions Prescriptions: No Action omeprazole 40 mg capsule,delayed release(DR/EC) 40 mg PO DAILY ramipril 5 mg capsule 5 mg PO BID metoprolol succinate 50 mg tablet extended release 24 hr 50 mg PO DAILY aspirin [Adult Low Dose Aspirin] 81 mg tablet,delayed release (DR/EC) 81 mg PO DAILY Referrals Follow up/Referrals: Jose Gaines MD [Primary Care Provider] - See instructions Activity Restrictions/Add. Instructions Additional Instructions/Restrictions: Please go to [facility] emergency department where you will be expected and the urology residents will be able to place a Batista catheter. Please return with any new or worsening symptoms or present to the nearest emergency department if your clinical status should change on the way Clinical Impressions Clinical Impression: Acute urinary retention Stand Alone Forms Stand Alone Forms: Transfer Record - ED Instructions Patient Instructions: DI for Urinary Tract Infection (UTI), DI for Urinary Tract Infection in Children Discharge ED Provider: Bar Larsen Adult HPI General Chief complaint: Urogenital-Male Stated complaint: Pain, swelling and leaking at catheter site Time Seen by Provider: 08/16/23 08:14 Mode of Arrival: Ambulatory Source of Information: Patient and Spouse Limitations: No Limitations Description of Symptoms (Recalled from ER Triage Doc. by RN): pt presents with c/o abdominal pressure. pt had prostate surgery jul 12. pt had urologist dr singh in [place]. pt reports constant leakage which is normal. pt reports pressure began yesterday. History of Present Illness HPI narrative: Patient presents with urinary retention for less than 1 day, he has associated suprapubic abdominal pain. History of bladder cancer, status post partial resection, and is followed by urology. He has had similar symptoms before requiring coud? Batista catheter. He denies any other complaints at this time. No fevers or chills or nausea or vomiting. His pain is mild in severity and nonradiating. Please note that above description of symptoms, in this electronic medical record under categorization of recalled from ER triage doctor by RN are reflective of an initial nursing assessment, however, is not reflective of my full history and physical exam that was personally taken and clarified. Consequentially, this preceding description of symptoms, which may include the patient's categorized chief complaint in the EMR, do not reflect my personal clinical impression, and the ultimate description of history of present illness and patient stated complaints should be deferred to this section of the note. Unless stated otherwise or congruent with this section of the note, additional signs, symptoms, or incongruence should be interpreted as inaccurate with my clinical impression. Related Data Home Medications Medication Instructions Recorded Confirmed aspirin 81 mg tablet,delayed 81 mg PO DAILY 10/10/22 04/12/23 release (Adult Low Dose Aspirin) metoprolol succinate 50 mg 50 mg PO DAILY 10/10/22 04/12/23 tablet,extended release 24 hr omeprazole 40 mg capsule,delayed 40 mg PO DAILY 10/10/22 04/12/23 release ramipril 5 mg capsule 5 mg PO BID 10/10/22 04/12/23 Allergies Allergy/AdvReac Type Severity Reaction Status Date / Time No Known Allergies Allergy Verified 11/14/22 09:28 [facility] Disclaimer: The information contained in this section may have been updated after the patient was seen, as this information can be updated by other users. Medical History Cataract Hearing loss History of bladder cancer HTN (hypertension), benign Surgical History History of appendectomy History of cardiac defibrillator placement History of foot surgery Family History Other Cancer Social History Smoking Status: Never smoker alcohol intake: never current occupational status: retired Travel in the last 8 weeks: Inside the [place] ROS Obtained: Yes Systems reviewed as appropriate & no additional complaints except as documented As per HPI Physical Exam General General appearance: alert and in no apparent distress Head Head exam: atraumatic and normocephalic Eye Eye exam: Present normal appearance Neck Neck exam: Present normal inspection Chest Chest inspection: Present normal inspection and symmetric chest wall rise Respiratory Respiratory exam: Present normal lung sounds bilaterally; Absent respiratory distress Cardiovascular Cardiovascular exam: Present regular rate and normal rhythm Abdominal Exam Abdominal exam: Present soft Abdominal tenderness: Present suprapubic Neurological Exam Neurological exam: Present alert and oriented X3 Psychiatric Psychiatric exam: Present normal affect and normal mood Skin Skin exam: Present warm and dry Medical Decision Making Medical Records Medical records reviewed: Yes I reviewed the patient's medical records. Ezra Inquiry Pt receiving controlled substance: No Vital Signs: 08/16/23 07:45 08/16/23 07:49 08/16/23 08:01 Temperature 97.6 F Temperature Source Oral Pulse Rate 90 87 Pulse Rate [Left Radial] 84 Respiratory Rate 17 Blood Pressure 144/80 H 109/72 L Blood Pressure [Right Arm] 144/80 H Blood Pressure Mean [Right Arm] 101 02 Sat by Pulse Oximetry 97 97 97 Oxygen Delivery Method Room Air 08/16/23 08:30 08/16/23 09:00 08/16/23 09:30 Temperature Temperature Source Pulse Rate 80 75 61 Pulse Rate [Left Radial] Respiratory Rate Blood Pressure 139/71 119/75 115/61 Blood Pressure [Right Arm] Blood Pressure Mean [Right Arm] 02 Sat by Pulse Oximetry 97 97 96 Oxygen Delivery Method Room Air 08/16/23 10:20 Temperature 98.0 F Temperature Source Pulse Rate 61 Pulse Rate [Left Radial] Respiratory Rate 16 Blood Pressure 116/61 Blood Pressure [Right Arm] Blood Pressure Mean [Right Arm] 02 Sat by Pulse Oximetry Oxygen Delivery Method Medical Decision Narrative: Patient with history and exam per above presenting for evaluation of urinary retention Diagnoses considered include bladder outlet obstruction, cystitis, autonomic dysfunction ED workup and treatment included: Attempted placement by nursing staff Batista catheter without success Bladder scan was performed revealing 600 cc. At this point patient and family member at bedside contacted [facility], I spoke with transfer center over the phone regarding management and disposition. Patient has been accepted for transfer to [facility] emergency department for further treatment with urologist. Patient is deemed stable for transfer at this time and after discussion of further treatment options including reattempted Batista placement in this emergency department he elects to be transferred at this time. Return precautions given. Critical Care Critical Care Time Critical Care Time: No
--- NOTE | 2023-08-16 09:20 | PC.NURSE ---
o/p with at this time.
--- NOTE | 2023-08-16 09:22 | PC.NURSE ---
o/p with at this time.
--- NOTE | 2023-08-16 09:32 | PC.NURSE ---
SPEAKING WITH [facility]
--- NOTE | 2023-08-16 09:44 | PC.NURSE ---
SPEAKING WITH AGAIN
--- NOTE | 2023-08-16 10:02 | PC.NURSE ---
PT WAS GIVEN A BRIEF
--- NOTE | 2023-08-16 10:17 | PC.NURSE ---
bladder scanned pt, urine volume 701 ml
== END 2023-08-16 10:21 | disposition short-term general hospital (02) ==
PROVIDERS: Emergency Provider Emergency Medicine; PCP Family Medicine
DX: R10.2 Pelvic and perineal pain (principal); R33.9 Retention of urine, unspecified; Z85.51 Personal history of malignant neoplasm of bladder; I10 Essential (primary) hypertension
CPT/HCPCS: 99285

== ENCOUNTER 2024-07-02 22:19 | Emergency (ER) | payer MEDICARE, SELFPAY ==
[2024-07-02 22:21] VITALS: BP 112/58; PULSE 109; RESP 20; TEMP 37.3; O2SAT 95; BMI 22.4
--- NOTE | 2024-07-02 23:11 | HMH.EDGENADL ---
Discharge Plan Disposition Patient Disposition: Home, Self-Care Prescriptions Prescriptions: No Action omeprazole 40 mg capsule,delayed release(DR/EC) 40 mg PO DAILY ramipril 5 mg capsule 5 mg PO BID metoprolol succinate 50 mg tablet extended release 24 hr 50 mg PO DAILY aspirin [Adult Low Dose Aspirin] 81 mg tablet,delayed release (DR/EC) 81 mg PO DAILY Referrals Follow up/Referrals: Jose Gaines MD [Primary Care Provider] - See instructions Activity Restrictions/Add. Instructions Additional Instructions/Restrictions: Please follow-up with your primary care provider. Please return to the emergency department if you develop any new or worsening symptoms or become concerned for your health. Clinical Impressions Clinical Impression: Food poisoning Instructions Patient Instructions: DI for Diarrhea and Traveler's Diarrhea -- Adult, DI for Diarrhea and Traveler's Diarrhea -- Child, DI for Nausea -- Adult, DI for Nausea -- Child Print Language Print Language: Telugu Discharge ED Provider: Darrick Allen General Adult HPI <Prachi Escudero DO - Last Filed: 07/02/24 23:15> General Chief complaint: Nausea/Vomiting/Diarrhea Stated complaint: Vomiting Time Seen by Provider: 07/02/24 22:34 Mode of Arrival: Ambulatory Source of Information: Patient Limitations: No Limitations Description of Symptoms (Recalled from ER Triage Doc. by RN): pt to ED with c/o N/V that started 30 mins ago. Pt report he ate chicken liver and gizzards for dinner from [employer]. pt has no other complaints. History of Present Illness HPI narrative: This patient is a 73-year-old male with a history of CAD, cardiomyopathy with defibrillator, hypertension, history of bladder cancer presenting to the emergency department for evaluation with concern for nausea and vomiting. Patient states that he ate chicken liver and concerns for dinner from leaves around 5 to 6 PM, and then suddenly about an hour prior to arrival he started having multiple episodes of emesis. He states that it was a little bit dark but he did not pay much attention to it. He states he vomited at least 4 times and is now feeling a lot better. He notes that he felt so sick initially that he thought it was his defibrillator, as it felt similar to when he had to have it placed in the past. He currently denies any chest pain or shortness of breath. He takes aspirin but denies any use of blood thinners. He also denies any history of prior GI bleeds, gastric ulcers, melena, or other concerns. Related Data Home Medications ?Medication ?Instructions ?Recorded ?Confirmed aspirin 81 mg tablet,delayed 81 mg PO DAILY 10/10/22 04/12/23 release (Adult Low Dose Aspirin) metoprolol succinate 50 mg 50 mg PO DAILY 10/10/22 04/12/23 tablet,extended release 24 hr omeprazole 40 mg capsule,delayed 40 mg PO DAILY 10/10/22 04/12/23 release ramipril 5 mg capsule 5 mg PO BID 10/10/22 04/12/23 Allergies Allergy/AdvReac Type Severity Reaction Status Date / Time No Known Allergies Allergy Verified 11/14/22 09:28 [facility] <Prachi Escudero DO - Last Filed: 07/02/24 23:15> [facility] Disclaimer: The information contained in this section may have been updated after the patient was seen, as this information can be updated by other users. Medical History Hearing loss Cataract History of bladder cancer HTN (hypertension), benign Surgical History History of foot surgery History of appendectomy History of cardiac defibrillator placement Family History Other Cancer Social History Smoking Status: Never smoker alcohol intake: never current occupational status: retired Travel in the last 8 weeks: Inside the [place] Have you lived/traveled outside US in past 30 days?: No Contact w/someone who lives/traveled outside US past 30 days?: No Exposure to someone with infectious disease in past 14 days?: No Do you have a fever (greater than 100.4 F or 38 C)?: No Have you tested positive for COVID-19: No Exposed to someone with COVID-19 in past 14 days?: No Do you have a sore throat?: No Do you have a cough?: No Do you have any weakness?: No Do you have any diarrhea?: No Are you experiencing any unusual bleeding?: No Do you have any muscle aches/pain?: No Do you have any abdominal pain?: No Are you experiencing loss of taste or smell?: No Other Medical History Have you received the Pneumonia Vaccine: Yes <Prachi Escudero DO - Last Filed: 07/02/24 23:15> ROS Obtained: Yes All systems reviewed & no additional complaints except as documented Physical Exam <Prachi Escudero DO - Last Filed: 07/02/24 23:15> General General appearance: alert and in no apparent distress Head Head exam: atraumatic and normocephalic Eye Eye exam: Present normal appearance, PERRL and EOMI ENT ENT exam: Present normal exam, normal oropharynx, mucous membranes moist and normal external ear exam Neck Neck exam: Present normal inspection, full ROM and trachea midline; Absent tenderness Chest Chest inspection: Present normal inspection and symmetric chest wall rise; Absent tenderness Respiratory Respiratory exam: Present normal lung sounds bilaterally; Absent respiratory distress, wheezes, stridor or accessory muscle use Cardiovascular Cardiovascular exam: Present normal rhythm and tachycardia Abdominal Exam Abdominal exam: Present soft; Absent distention, tenderness, guarding or rebound Extremities Exam Extremities exam: Present normal inspection, full ROM and normal capillary refill; Absent tenderness or edema Back Exam Back exam: Present normal inspection and full ROM; Absent tenderness Neurological Exam Neurological exam: Present alert, oriented X3, CN II-XII intact and normal gait; Absent motor sensory deficit Psychiatric Psychiatric exam: Present normal affect and normal mood Skin Skin exam: Present warm and dry Medical Decision Making <Prachi Escudero DO - Last Filed: 07/02/24 23:15> Medical Records Medical records reviewed: Yes I reviewed the patient's medical records. Screening: Per USPSTF and CDC recommendations, given the prevalence of disease in our region, it is our hospital?s policy to screen for HIV and viral Hepatitis for all patients aged 18 and over and those with ongoing risk factors. Ezra Inquiry Pt receiving controlled substance: No Vital Signs: 07/02/24 22:21 07/03/24 00:37 Temperature 99.1 F 98.2 F Temperature Source Oral Pulse Rate 76 Pulse Rate [Left Radial] 109 H Respiratory Rate 20 20 Blood Pressure 107/55 L Blood Pressure [Right Arm] 112/58 L Blood Pressure Mean [Right Arm] 76 Blood Pressure Source [Right Arm] Automatic Cuff Blood Pressure Position [Right Arm] Sitting 02 Sat by Pulse Oximetry 95 Oxygen Delivery Method Room Air Room Air Lab Data Lab results reviewed: Yes I reviewed the patient's lab results. Lab Results 07/02/24 23:09: WBC 10.8, RBC 4.11 L, Hgb 11.1 L, Hct 32.3 L, MCV 78.6 L, MCH 27.0, MCHC 34.4, RDW 15.1, Plt Count 175, MPV 9.9, Neut % (Auto) 87.0 H, Lymph % (Auto) 3.9 L, [place] % (Auto) 8.0, Eos % (Auto) 0.2, Baso % (Auto) 0.3, Neut # (Auto) 9.4 H, Lymph # (Auto) 0.4 L, [place] # (Auto) 0.9, Eos # (Auto) 0.0, Baso # (Auto) 0.0, PT 11.3, INR 1.03, APTT 25.1, Sodium 134 L, Potassium 3.8, Chloride 102, Carbon Dioxide 22, Anion Gap 13.8, BUN 19, Creatinine 1.40 H, Estimated Creat Clear 50, Estimated GFR 50 L, Est GFR ( Amer) 60, Glucose 140 H, Calcium 8.6, Total Bilirubin 0.4, AST 30, ALT 20, Alkaline Phosphatase 70, Troponin I < 0.01, Total Protein 6.2 L, Albumin 3.8, Globulin 2.4, Albumin/Globulin Ratio 1.6, Lipase 84 07/02/24 23:50: Lactate 1.1 07/02/24 23:09 07/02/24 23:09 Orders (Tests/Meds): ED MEDICATIONS Discontinued Medications Generic Name Dose Route Start Last Admin Trade Name Freq PRN Reason Stop Dose Admin Lactated Ringer's 1,000 mls @ 999 mls/hr 07/02/24 23:06 07/02/24 23:16 Lactated Ringer's 1000 Ml Bag IV 07/03/24 00:06 999 mls/hr .Q1H1M ONE Administration Pantoprazole Sodium 80 mg/ 100 mls @ 100 mls/hr 07/02/24 23:06 07/02/24 23:16 Sodium Chloride IV 07/03/24 00:05 100 mls/hr ONCE ONE Administration Ondansetron HCl 4 mg 07/02/24 23:06 07/02/24 23:16 Ondansetron 4mg/2ml Vial IV 07/02/24 23:07 4 mg ONCE ONE Administration ORDERS Category Date Time Status Complete Blood Count Auto Diff Stat Lab 07/02/24 23:09 Completed Comprehensive Metabolic Panel Stat Lab 07/02/24 23:09 Completed HIV Combo Stat Lab 07/02/24 23:09 Received Hepatitis C Ab Qual. W/ RFX Stat Lab 07/02/24 23:09 Received Lactic Acid Stat Lab 07/02/24 23:50 Completed Lipase Stat Lab 07/02/24 23:09 Completed PT INR [Prothrombin Time INR] Stat Lab 07/02/24 23:09 Completed PTT [Activated Partial Thrombo Time] Stat Lab 07/02/24 23:09 Completed Trop I [Troponin I] Stat Lab 07/02/24 23:09 Completed Troponin I Q3H Lab 07/03/24 02:15 Ordered Troponin I Q3H Lab 07/03/24 05:15 Ordered Medical Decision Narrative: In summary, this patient is a 73-year-old male presenting to the Emergency Department for evaluation of acute onset of nausea and vomiting that started this evening. Differential diagnoses considered include but are not limited to gastroenteritis, bacterial enteritis, dehydration, MEE, GI bleed, ACS. Ruling out the most morbid conditions drove assessment. It should be noted patient's history includes CAD, cardiomyopathy with defibrillator, hypertension which may or may not be at goal therapy. This complicates all aspects of care by increasing patient's risk for morbidity. I reviewed patient's past medical records and noted prior evaluations for urinary retention in the past. On exam, the patient is lying in bed in no acute distress. He does have very dark emesis coating his chin, which could be tented from the food that he had eaten though it was several hours prior to the emesis. Presentation is slightly concerning for GI bleed. Abdominal exam is benign. He is mildly tachycardic on clinical exam, blood pressure is soft with systolics in the 90s. Workup included CBC, CMP, lactic acid, troponin, PT, PTT, EKG. He was given a bolus of IV fluids as well as IV Zofran and pantoprazole for symptomatic improvement. Patient care was handed to the oncoming provider, Dr. Allen, pending workup and disposition. <Darrick Allen MD - Last Filed: 07/03/24 00:56> Vital Signs: 07/02/24 22:21 07/03/24 00:37 Temperature 99.1 F 98.2 F Temperature Source Oral Pulse Rate 76 Pulse Rate [Left Radial] 109 H Respiratory Rate 20 20 Blood Pressure 107/55 L Blood Pressure [Right Arm] 112/58 L Blood Pressure Mean [Right Arm] 76 Blood Pressure Source [Right Arm] Automatic Cuff Blood Pressure Position [Right Arm] Sitting 02 Sat by Pulse Oximetry 95 Oxygen Delivery Method Room Air Room Air Lab Data Lab Results 07/02/24 23:09: WBC 10.8, RBC 4.11 L, Hgb 11.1 L, Hct 32.3 L, MCV 78.6 L, MCH 27.0, MCHC 34.4, RDW 15.1, Plt Count 175, MPV 9.9, Neut % (Auto) 87.0 H, Lymph % (Auto) 3.9 L, [place] % (Auto) 8.0, Eos % (Auto) 0.2, Baso % (Auto) 0.3, Neut # (Auto) 9.4 H, Lymph # (Auto) 0.4 L, [place] # (Auto) 0.9, Eos # (Auto) 0.0, Baso # (Auto) 0.0, PT 11.3, INR 1.03, APTT 25.1, Sodium 134 L, Potassium 3.8, Chloride 102, Carbon Dioxide 22, Anion Gap 13.8, BUN 19, Creatinine 1.40 H, Estimated Creat Clear 50, Estimated GFR 50 L, Est GFR ( Amer) 60, Glucose 140 H, Calcium 8.6, Total Bilirubin 0.4, AST 30, ALT 20, Alkaline Phosphatase 70, Troponin I < 0.01, Total Protein 6.2 L, Albumin 3.8, Globulin 2.4, Albumin/Globulin Ratio 1.6, Lipase 84 07/02/24 23:50: Lactate 1.1 Orders (Tests/Meds): ED MEDICATIONS Discontinued Medications Generic Name Dose Route Start Last Admin Trade Name Freq PRN Reason Stop Dose Admin Lactated Ringer's 1,000 mls @ 999 mls/hr 07/02/24 23:06 07/02/24 23:16 Lactated Ringer's 1000 Ml Bag IV 07/03/24 00:06 999 mls/hr .Q1H1M ONE Administration Pantoprazole Sodium 80 mg/ 100 mls @ 100 mls/hr 07/02/24 23:06 07/02/24 23:16 Sodium Chloride IV 07/03/24 00:05 100 mls/hr ONCE ONE Administration Ondansetron HCl 4 mg 07/02/24 23:06 07/02/24 23:16 Ondansetron 4mg/2ml Vial IV 07/02/24 23:07 4 mg ONCE ONE Administration ORDERS Category Date Time Status Complete Blood Count Auto Diff Stat Lab 07/02/24 23:09 Completed Comprehensive Metabolic Panel Stat Lab 07/02/24 23:09 Completed HIV Combo Stat Lab 07/02/24 23:09 Received Hepatitis C Ab Qual. W/ RFX Stat Lab 07/02/24 23:09 Received Lactic Acid Stat Lab 07/02/24 23:50 Completed Lipase Stat Lab 07/02/24 23:09 Completed PT INR [Prothrombin Time INR] Stat Lab 07/02/24 23:09 Completed PTT [Activated Partial Thrombo Time] Stat Lab 07/02/24 23:09 Completed Trop I [Troponin I] Stat Lab 07/02/24 23:09 Completed Troponin I Q3H Lab 07/03/24 02:15 Ordered Troponin I Q3H Lab 07/03/24 05:15 Ordered Medical Decision Narrative: In summary, this patient is a 73-year-old male presenting to the Emergency Department for evaluation of acute onset of nausea and vomiting that started this evening. Differential diagnoses considered include but are not limited to gastroenteritis, bacterial enteritis, dehydration, MEE, GI bleed, ACS. Ruling out the most morbid conditions drove assessment. It should be noted patient's history includes CAD, cardiomyopathy with defibrillator, hypertension which may or may not be at goal therapy. This complicates all aspects of care by increasing patient's risk for morbidity. I reviewed patient's past medical records and noted prior evaluations for urinary retention in the past. On exam, the patient is lying in bed in no acute distress. He does have very dark emesis coating his chin, which could be tented from the food that he had eaten though it was several hours prior to the emesis. Presentation is slightly concerning for GI bleed. Abdominal exam is benign. He is mildly tachycardic on clinical exam, blood pressure is soft with systolics in the 90s. Workup included CBC, CMP, lactic acid, troponin, PT, PTT, EKG. He was given a bolus of IV fluids as well as IV Zofran and pantoprazole for symptomatic improvement. Patient care was handed to the oncoming provider, Dr. Allen, pending workup and disposition. Tiffany SEGOVIA: I assumed care of the patient at the time of handoff from the prior provider. On reassessment patient reports complete symptomatic resolution. He continues to deny any abdominal pain. Has no abdominal tenderness on exam. He thinks he got a bad batch of Roberto's . Patient ambulated without difficulty and without symptoms. Blood pressure with maps in the 70s at discharge. Patient given strict return precautions including for development of abdominal pain, recurrent vomiting etc. Patient discharged in stable condition. Critical Care <Prachi Escudero, - Last Filed: 07/02/24 23:15> Critical Care Time Critical Care Time: No
[2024-07-02] MEDS: ONDANSETRON 4MG/2ML VIAL 4 MG IV (23:16)
[2024-07-02] MEDS: PANTOPRAZOLE SODIUM 80 MG in 0.9 % SODIUM CHLORIDE 100 ML 100 MG IV (23:16)
[2024-07-02] MEDS: LACTATED RINGERS 1000ML 1,000 ML 999 ML IV (23:16)
[2024-07-02 23:17] LABS: Basophils % 0.3 % (0.1-2.0); Eosinophils % 0.2 % (0.1-12.0); Hematocrit 32.3 % (42.0-52.0); Hemoglobin 11.1 g/dL (14.1-18.0); Lymphocytes # 0.4 K/mm3 (0.7-4.5); Lymphocytes % 3.9 % (10-50); Mean Corpuscular HGB Conc 34.4 g/dL (31.8-35.4); Mean Corpuscular Volume 78.6 fl (80-94); Mean Platelet Volume 9.9 fl (7.4-10.4); Monocytes # 0.9 K/mm3 (0.1-1.0); Neutrophils # 9.4 K/mm3 (1.8-7.8); Platelet Count 175 K/mm3 (142-424); Red Blood Count 4.11 M/mm3 (4.60-6.20); Red Cell Distribution Width 15.1 % (11.5-17.5); White Blood Count 10.8 K/mm3 (4.8-10.8)
--- NOTE | 2024-07-02 23:25 | ECG_ITS ---
APPROVED REPORT Exam: Resting ECG HR:93 bpm ECG Measurements Heart Rate 93 AXES TX 151 P 37 QRSd 100 QRS -11 QT 361 T 51 QTc 412 Conclusion SINUS RHYTHM NONSPECIFIC T-WAVE ABNORMALITY BORDERLINE ECG UNCONFIRMED REPORT Electronically signed by : YAMIL FERMIN, 07/04/2024 00:40:02
[2024-07-02 23:33] LABS: Activated Partial Thrombo Time 25.1 seconds (22.5-28.5); INR 1.03 (0.9-1.1); Prothrombin Time 11.3 seconds (9.2-12.1)
[2024-07-02 23:34] LABS: Alanine Aminotransferase 20 U/L (12-78); Albumin Level 3.8 g/dl (3.5-5.0); Albumin/Globulin Ratio 1.6 (1.1-1.8); Alkaline Phosphatase 70 U/L (38-126); Anion Gap 13.8 mEq/L (5-15); Aspartate Amino Transferase 30 U/L (17-59); Bilirubin,Total 0.4 mg/dl (0.2-1.3); Blood Urea Nitrogen 19 mg/dl (9-20); Calcium 8.6 mg/dl (8.4-10.2); Carbon Dioxide 22 mmol/L (22.0-30.0); Chloride 102 mmol/L (98-107); Creatinine Clearance Estimated 50 mL/min (50-200); Estimated Glomerular Filt Rate 50 ml/min (>60); GFR (African American) 60 ML/MIN (>60); Globulin 2.4 g/dL (1.3-3.2); Glucose 140 mg/dl (74-100); Lipase 84 U/L (23-300); Potassium 3.8 mmoL/L (3.5-5.1); Sodium 134 mmol/L (136-145); Total Protein,Serum 6.2 g/dl (6.3-8.2)
--- NOTE | 2024-07-02 23:52 | PC.NURSE ---
Lactic Acid collected and sent on this patient and sent to lab
[2024-07-02 23:57] LABS: Troponin I < 0.01 ng/ml (0.00-0.034)
[2024-07-03 00:11] LABS: Lactic Acid 1.1 mmol/L (0.7-2.1)
[2024-07-03 00:37] VITALS: BP 107/55; PULSE 76; RESP 20; TEMP 36.8; O2SAT 97
[2024-07-03 10:56] LABS: Hepatitis C Ab Qual. W/ RFX NEGATIVE (Negative)
[2024-07-03 13:15] LABS: HIV Combo NEGATIVE (Negative)
== END 2024-07-03 00:42 | disposition home or self-care (01) ==
PROVIDERS: Emergency Medicine; Emergency Provider Emergency Medicine; PCP Family Medicine
DX: A05.9 Bacterial foodborne intoxication, unspecified (principal); R11.2 Nausea with vomiting, unspecified
CPT/HCPCS: 80053; 83605; 83690; 84484; 85025; 85610; 85730; 86803; 87389; 93005; 96361; 96374; 99283; J2405; J7120